=== PATIENT | female | born 1950 | race Caucasian/White ===

== ENCOUNTER 2018-02-03 09:29 | Emergency (ER) | payer MEDICARE, BC ==
[~2018-02-03] VITALS: Ht 160 cm; Wt 55.8 kg
[2018-02-03] MEDS ORDERED: PROGESTERONE100 MG PO (09:37)
[2018-02-03] MEDS ORDERED: estrogen (09:37)
[2018-02-03] MEDS ORDERED: Sodium Chloride 500ML 500 ML IV ONE (10:00)
[2018-02-03] MEDS ORDERED: Morgan Lens TOPIC ONE (10:00)
[2018-02-03] MEDS ORDERED: Fluorescein Strips LEFT EYE ONE (10:00)
[2018-02-03] MEDS ORDERED: Tetracaine 0.5% Opth 4ml Soln LEFT EYE ONE (10:00)
[2018-02-03 10:12] VITALS: BP 130/76
[2018-02-03 10:20] VITALS: BP 128/69
--- NOTE | 2018-02-03 10:26 | Emergency Room Report ---
History of Present Illness General Chief Complaint: Eye Problems Source: Patient Present Illness HPI 67-year-old female presents ED complaining of blurred vision. States that she actually splashed bleach in her eyes today while doing laundry. States she did flush out her eyes and they do feel better. Notes burning sensation. Denies any photophobia. States there is some blurry vision. Does not wear contacts. Denies any other injuries. No other aggravating or relieving factors. Denies any other associated symptoms Allergies: Coded Allergies: No Known Allergies (Unverified , 02/03/18) Patient History Past Medical History: none Past Surgical History: none Pertinent Family History: none Social History: Denies: smoking, alcohol use, drug use Last Menstrual Period: 1997 Now: No Immunizations: UTD Reviewed Nursing Documentation: PMH: Agreed; PSxH: Agreed Nursing Documentation-PMH Past Medical History: No History, Except For Review of Systems All Other Systems: negative except mentioned in HPI Physical Exam Vital Signs Date Time Temp Pulse Resp B/P (MAP) Pulse Ox O2 Delivery O2 Flow Rate FiO2 02/03/18 09:33 98.1 61 17 130/76 97 Room Air 98.1 Sp02 EP Interpretation: reviewed, normal General Appearance: no apparent distress, alert, GCS 15, non-toxic Head: normocephalic Eyes: bilateral eye PERRL, bilateral eye fluoroscene uptake - no corneal abrasion, bilateral eye EOMI ENT: hearing grossly normal Neck: normal inspection Respiratory: normal inspection Cardiovascular #1: normal inspection Gastrointestinal: normal inspection Rectal: deferred Genitourinary: no CVA tenderness Musculoskeletal: normal inspection Neurologic: alert, oriented x3, responsive, motor strength/tone normal, sensory intact, speech normal Psychiatric: normal inspection Skin: normal inspection Lymphatic: normal inspection Medical Decision Making Diagnostic Impression: Primary Impression: Chemical conjunctivitis Qualified Codes: H10.213 - Acute toxic conjunctivitis, bilateral ER Course Hospital Course 67 yo F presents to ED c/o bilateral eye pain, s/p splashed bleach in her eye Differential diagnoses include: conjunctivitis, traumatic iritis, foreign body, corneal abrasion Clinical course Patient placed on stretcher. After initial history and physical we applied Jovany lens and flushed both eyes. I applied tetracaine floor seen and evaluated both eyes. No signs of a corneal abrasion or foreign body Reassurance given. Patient feels better after IV flushing. Recommend close follow-up with ophthalmology. Diagnosis - chemical conjunctivitis Stable and discharged to home with prescription for Ocuflox. Followup with PMD/ Optho. Return to ED if symptoms recur or worsen Last Vital Signs Date Time Temp Pulse Resp B/P (MAP) Pulse Ox O2 Delivery O2 Flow Rate FiO2 02/03/18 10:12 98.1 17 130/76 97 Room Air 98.1 02/03/18 09:33 61 Status: improved Disposition: HOME, SELF-CARE Condition: Stable Scripts Ofloxacin (OCUFLOX) 5 Ml Drops 1 DROP BOTH EYES QID for 7 Days, ML Prov: Carson Griffin MD 02/03/18 Referrals: NOT APPLICABLE THIS PATIENT,RE (PCP) Carson Griffin MD Feb 03, 2018 10:26
[2018-02-03] MEDS ORDERED: OCUFLOX5 ML BOTH EARS (10:35)
[2018-02-03] MEDS ORDERED: OCUFLOX5 ML BOTH EYES (11:00)
== END 2018-02-03 11:30 | disposition home or self-care (01) ==
LOC: EMR 09:58
DX: H10.213 Acute toxic conjunctivitis, bilateral (principal)
CPT/HCPCS: 96360; 99283